=== PATIENT | male | born 1980 | race Two or more races ===

== ENCOUNTER → 2016-10-01 08:47 | Outpatient (CLI) | payer BC ==
[2015-02-04 10:44] VITALS: BMI 123.5
[~2016-10-01 08:47] MED LIST: FERRETTS324 MG PO; LIPITOR10 MG PO; NEXIUM40 MG PO; PERCOCET 10/3251 TA1 PO
== END | disposition home or self-care (01) ==
LOC: D.RAD 08:47
DX: M25.512 Pain in left shoulder (principal)